=== PATIENT | female | born 1955 | race Caucasian/White ===

== ENCOUNTER 2023-03-14 07:27 | Outpatient (REF) | payer MEDICARE, OTHER, SELFPAY ==
--- NOTE | ~2023-03-14 | XR_ITS ---
EXAMINATION: XR LEFT KNEE XR RIGHT KNEE CLINICAL INFORMATION: Bilateral knee pain. COMPARISON: None TECHNIQUE: AP, lateral and sunrise views of each knee. FINDINGS: RIGHT: Status post right total knee arthroplasty. Hardware components are in satisfactory position. No periprosthetic lucency or periprosthetic fracture. No significant joint effusion. LEFT: Status post left total knee arthroplasty with longstem tibial component. Hardware components are in satisfactory position. There is 1 mm lucency along the anterior aspect of the tibial prosthesis. No significant joint effusion. XR/XR knee LT 3V IMPRESSION: 1 mm lucency along the anterior aspect of the tibial prosthesis. Advise clinical correlation.
--- NOTE | ~2023-03-14 | XR_ITS ---
EXAMINATION: XR LEFT KNEE XR RIGHT KNEE CLINICAL INFORMATION: Bilateral knee pain. COMPARISON: None TECHNIQUE: AP, lateral and sunrise views of each knee. FINDINGS: RIGHT: Status post right total knee arthroplasty. Hardware components are in satisfactory position. No periprosthetic lucency or periprosthetic fracture. No significant joint effusion. LEFT: Status post left total knee arthroplasty with longstem tibial component. Hardware components are in satisfactory position. There is 1 mm lucency along the anterior aspect of the tibial prosthesis. No significant joint effusion. XR/XR knee RT 3V IMPRESSION: 1 mm lucency along the anterior aspect of the tibial prosthesis. Advise clinical correlation.
== END 2023-03-14 07:28 | disposition home or self-care (01) ==
LOC: HO.HOSX 07:27
PROVIDERS: Visit Provider Orthopaedic Surgery
DX: M25.562 Pain in left knee (principal); M25.561 Pain in right knee; Z96.653 Presence of artificial knee joint, bilateral
CPT/HCPCS: 73562; 99212

== ENCOUNTER 2023-03-14 10:02 | Outpatient (AMB) | payer MEDICARE, OTHER, SELFPAY ==
--- NOTE | 2023-03-14 10:07 | MHC.OFFVIS ---
Intake Intake Visit Reasons: New Pt - Bilateral Knees Intake Note: Hilda is a 67 year old female who presents today as a new patient with complaints of intermittent discomfort in both of her knees after undergoing bilateral total knee replacement surgeries. The patient also underwent revision of her left total knee replacement several years ago. She denies any fevers or chills. She continues to walk for exercise. She does not take any medicines for discomfort. Allergies naproxen Allergy (Severe, Verified 03/14/23 10:19) throat closes Physical Exam Const Other: Well-nourished well-developed very friendly female awake alert and oriented x3 in no acute distress Extrem Other: Bilateral lower extremity examination shows good capillary refill, no skin lesions noted, normal sensation light touch Bilateral knee examination shows that the surgical incisions are well healed, no erythema, full active extension and flexion to 120 degrees, her patellae track well, no instability Results Reviewed Results Reviewed: X-rays of the patient's bilateral knees taken today show total knee arthroplasties in good position with no signs of loosening, no acute bony abnormalities Assessment & Plan Assessment & Plan (1) Right knee pain: Code(s): M25.561 - Pain in right knee Plan: Ms. Cordova continues to do very well after undergoing bilateral total knee replacement surgeries as well as revision left total knee replacement surgery. She will continue with her home exercise program. She does know to take antibiotics before any dental work. She will contact me prior to her annual follow-up appointment should any questions or concerns arise. Feel free to call me at any time should questions regarding her orthopedic management arise. I spent 22 minutes in reviewing the patient's records and imaging studies, seeing the patient and documenting in the medical record. (2) Left knee pain: Code(s): M25.562 - Pain in left knee Orders: Orders XR knee LT 3V Today M25.562 - Pain in left knee XR knee RT 3V Today M25.561 - Pain in right knee Coding Level of Care Code Est Pt Level 2 (60509) Diagnoses Right knee pain M25.561 Left knee pain M25.562
== END 2023-03-14 10:51 | disposition home or self-care (01) ==
PROVIDERS: PCP Internal Medicine; Visit Provider Orthopaedic Surgery
DX: M25.561 Pain in right knee (principal); M25.562 Pain in left knee
CPT/HCPCS: 99212

== ENCOUNTER 2023-06-27 09:28 | Outpatient (AMB) | payer MEDICARE, OTHER, SELFPAY ==
--- NOTE | 2023-06-27 09:30 | MHC.OFFVIS ---
Intake Intake Visit Reasons: OV - Bilateral Knee pain Intake Note: Hilda is a 67 year old female who presents today with complaints of intermittent discomfort in both of her knees after undergoing bilateral total knee replacement surgeries. The patient also underwent revision of her left total knee replacement several years ago. She denies any fevers or chills. She continues to walk for exercise. She does not take any medicines for discomfort. She is currently undergoing treatment for melanoma on her right lower leg. Allergies naproxen Allergy (Severe, Verified 06/27/23 09:30) throat closes Medication List - Last Reconciled 06/27/23 by Abdullahi Arshad MD amoxicillin 2,000 mg (4 x 500 mg) PO ONCE 1 day Physical Exam Const Other: Well-nourished well-developed very friendly female awake alert and oriented x3 in no acute distress Extrem Other: Bilateral knee examination shows that the surgical incisions are well healed, no erythema, full active extension and flexion to 120 degrees, her patellae track well Assessment & Plan Assessment & Plan (1) Right knee pain: Code(s): M25.561 - Pain in right knee (2) Left knee pain: Code(s): M25.562 - Pain in left knee Plan: Ms. Cordova continues to do well after undergoing bilateral total knee replacement surgeries. She will continue with her home exercise program. She does know to take antibiotics before any dental work. She will contact me prior to her annual follow-up appointment should any questions or concerns arise. Feel free to call me at any time should questions regarding his orthopedic management arise. I spent 22 minutes in reviewing the patient's records and imaging studies, seeing the patient and documenting in the medical record. Coding Level of Care Code Est Pt Level 2 (18175) Diagnoses Right knee pain M25.561 Left knee pain M25.562
== END 2023-06-27 09:55 | disposition home or self-care (01) ==
PROVIDERS: PCP Internal Medicine; Visit Provider Orthopaedic Surgery
DX: M25.561 Pain in right knee (principal); M25.562 Pain in left knee
CPT/HCPCS: 99212

== ENCOUNTER → 2023-06-27 09:28 | Outpatient (BNVA) | payer MEDICARE, OTHER, SELFPAY | PROVIDERS: PCP Internal Medicine; Visit Provider Orthopaedic Surgery | DX: M25.561 Pain in right knee (principal); M25.562 Pain in left knee; C43.71 Malignant melanoma of right lower limb, including hip; Z96.653 Presence of artificial knee joint, bilateral; Z47.1 Aftercare following joint replacement surgery; Z96.652 Presence of left artificial knee joint | CPT/HCPCS: 99212 ==

== ENCOUNTER 2023-11-27 09:53 | Outpatient (AMB) | payer MEDICARE, OTHER, SELFPAY ==
--- NOTE | 2023-11-27 09:53 | MHC.OFFVIS ---
Intake Vital Signs 11/27/23 09:56 Height 5 ft 10 in Weight 230 lb BMI 33.0 Intake Visit Reasons: OV - Bilateral Knee pain Intake Note: Hilda is a 67 year old female who presents today with complaints of intermittent discomfort in both of her knees after undergoing bilateral total knee replacement surgeries. The patient also underwent revision of her left total knee replacement several years ago. She denies any fevers or chills. She remains quite active with her zoroastrianism activities. She does not take any medicines for discomfort. Allergies naproxen Allergy (Severe, Verified 11/27/23 10:01) throat closes Medication List - Last Reconciled 11/27/23 by Abdullahi Arshad MD amoxicillin 2,000 mg (4 x 500 mg) PO ONCE 1 day PFS Surgical History Hx of shoulder surgery History of right knee joint replacement History of left knee replacement Social History Patient Tobacco Use Status: Never used Tobacco Current occupational status: retired Physical Exam Vital Signs: BMI result Body Mass Index 33.0 Const Other: Well-nourished well-developed very friendly female awake alert and oriented x3 in no acute distress Extrem Other: Bilateral lower extremity examination shows good capillary refill, no skin lesions noted, normal sensation light touch Bilateral knee examination shows that the surgical incisions are well healed, no erythema, full active extension and flexion to 120 degrees, her patellae track well Assessment & Plan Assessment & Plan (1) Right knee pain: Code(s): M25.561 - Pain in right knee (2) Left knee pain: Code(s): M25.562 - Pain in left knee Plan: Ms. Cordova continues to do well after undergoing bilateral total knee replacement surgeries. She will continue with her active lifestyle. She does know to take antibiotics before any dental work. She will contact me prior to her annual follow-up appointment should any questions or concerns arise. Feel free to call me at any time should questions regarding her orthopedic management arise. Plan I spent 22 minutes in reviewing the patient's records and imaging studies, seeing the patient and documenting in the medical record. Coding Level of Care Code Est Pt Level 2 (91775) Diagnoses Right knee pain M25.561 Left knee pain M25.562
[2023-11-27 09:56] VITALS: BMI 33.0
== END 2023-11-27 10:22 | disposition home or self-care (01) ==
PROVIDERS: PCP Internal Medicine; Visit Provider Orthopaedic Surgery
DX: M25.561 Pain in right knee (principal); M25.562 Pain in left knee
CPT/HCPCS: 99213

== ENCOUNTER → 2023-11-27 09:53 | Outpatient (BNVA) | payer MEDICARE, OTHER, SELFPAY | PROVIDERS: PCP Internal Medicine; Visit Provider Orthopaedic Surgery | DX: M25.561 Pain in right knee (principal); M25.562 Pain in left knee | CPT/HCPCS: 99212 ==

== ENCOUNTER 2024-04-24 10:18 | Outpatient (REF) | payer MEDICARE, OTHER, SELFPAY ==
--- NOTE | ~2024-04-24 | XR_ITS ---
EXAMINATION: XR KNEE, BILATERAL CLINICAL INFORMATION: M25.562 - Pain in left knee COMPARISON: 03/14/2023 TECHNIQUE: Three views of each knee. FINDINGS: Stable, standard appearance of the bilateral total knee arthroplasties which are in the usual position and alignment without evidence of loosening or fracture. XR/XR knee RT 3V IMPRESSION: Stable bilateral total knee arthroplasties. Electronically signed by: Toby Vega MD 04/30/2024 12:44 PM EDT
--- NOTE | ~2024-04-24 | XR_ITS ---
EXAMINATION: XR KNEE, BILATERAL CLINICAL INFORMATION: M25.562 - Pain in left knee COMPARISON: 03/14/2023 TECHNIQUE: Three views of each knee. FINDINGS: Stable, standard appearance of the bilateral total knee arthroplasties which are in the usual position and alignment without evidence of loosening or fracture. XR/XR knee LT 3V IMPRESSION: Stable bilateral total knee arthroplasties. Electronically signed by: Toby Vega MD 04/30/2024 12:44 PM EDT
== END 2024-04-24 10:19 | disposition home or self-care (01) ==
LOC: HO.XRAY 10:18
PROVIDERS: PCP Internal Medicine; Visit Provider Orthopaedic Surgery
DX: M25.561 Pain in right knee (principal); M25.562 Pain in left knee
CPT/HCPCS: 73562; 99212

== ENCOUNTER 2024-04-24 11:02 | Outpatient (AMB) | payer MEDICARE, OTHER, SELFPAY ==
--- NOTE | 2024-04-24 11:07 | MHC.OFFVIS ---
Intake Visit Reasons: OV - Bilateral Knee pain Intake Note: Hilda is a 67 year old female who presents today with complaints of intermittent discomfort in both of her knees after undergoing bilateral total knee replacement surgeries. The patient also underwent revision of her left total knee replacement several years ago. She denies any fevers or chills. 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 She does not take any medicines for discomfort. Allergies naproxen Allergy (Severe, Verified 04/24/24 11:07) throat closes Medication List - Last Reconciled 04/24/24 by Abdullahi Arshad MD amoxicillin 2,000 mg (4 x 500 mg) PO ONCE 1 day PFS Surgical History Hx of shoulder surgery History of right knee joint replacement History of left knee replacement Social History Patient Tobacco Use Status: Never used Tobacco Current occupational status: retired Physical Exam Const Other: Well-nourished well-developed very friendly female awake alert and oriented x3 in no acute distress Extrem Other: Bilateral lower extremity examination shows good capillary refill, no skin lesions noted, normal sensation light touch Bilateral knee examination shows that the surgical incisions are well healed, no erythema, full active extension and flexion to 120 degrees, her patellae track well Results Reviewed Results Reviewed: X-rays of the patient's bilateral knees taken today show total knee arthroplasties in good position with no signs of loosening, no acute bony abnormalities Assessment & Plan Assessment & Plan (1) Right knee pain: Code(s): M25.561 - Pain in right knee Category: Medical (2) Left knee pain: Code(s): M25.562 - Pain in left knee Category: Medical Plan Hilda continues to do very well after undergoing bilateral total knee replacement surgeries. She will continue with her home exercise program. She does know to take antibiotics before any dental work. She will contact me prior to her annual follow-up appointment should any questions or concerns arise. Feel free to call me at any time should questions regarding her orthopedic management arise. I spent 22 minutes in reviewing the patient's records and imaging studies, seeing the patient and documenting in the medical record. Orders: Orders XR knee LT 3V Today M25.562 - Pain in left knee XR knee RT 3V Today M25.561 - Pain in right knee Coding Level of Care Code Est Pt Level 3 (13870) Complex EM visit Add On G2211 Diagnoses Right knee pain M25.561 Left knee pain M25.562
== END 2024-04-24 11:44 | disposition home or self-care (01) ==
PROVIDERS: PCP Internal Medicine; Visit Provider Orthopaedic Surgery
DX: M25.561 Pain in right knee (principal); M25.562 Pain in left knee; Z96.653 Presence of artificial knee joint, bilateral
CPT/HCPCS: 99213; G2211

== ENCOUNTER 2024-11-21 12:46 | Outpatient (REF) | payer MEDICARE, OTHER, SELFPAY ==
--- NOTE | ~2024-11-21 | XR_ITS ---
EXAMINATION: XR HAND AND WRIST COMPLETE LEFT, XR FOREARM 2 VIEWS LEFT HISTORY: Z91.81 - History of falling COMPARISON: There are no prior studies available for comparison. FINDINGS: Three views of the left hand and wrist, AP and lateral views of the left forearm are submitted. The bones are osteopenic. A well-corticated osseous density is seen adjacent to the ulnar styloid may be the result of old trauma. There is no acute fracture or dislocation. 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 The soft tissues are unremarkable. XR/XR forearm LT 2V IMPRESSION: No evidence of acute fracture of the left hand, wrist, or forearm. Electronically signed by: Paolo Jain MD 11/21/2024 02:37 PM EDT
--- NOTE | ~2024-11-21 | XR_ITS ---
EXAMINATION: XR HAND AND WRIST COMPLETE LEFT, XR FOREARM 2 VIEWS LEFT HISTORY: Z91.81 - History of falling COMPARISON: There are no prior studies available for comparison. FINDINGS: Three views of the left hand and wrist, AP and lateral views of the left forearm are submitted. The bones are osteopenic. A well-corticated osseous density is seen adjacent to the ulnar styloid may be the result of old trauma. There is no acute fracture or dislocation. 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 The soft tissues are unremarkable. XR/XR hand wrist LT IMPRESSION: No evidence of acute fracture of the left hand, wrist, or forearm. Electronically signed by: Poalo Jain MD 11/21/2024 02:37 PM EDT
--- OUTSIDE RECORDS SUMMARY | 2024-11-21 14:31 | XMS_ITS | Clinical Summary ---
Author Organization [facility] Address [address] [place] [address] Care Team Providers Care C T Tech Name Role Phone Everett Cobb MD Primary Care Provider [phone] Allergies No known active allergies Medications Medication [...] age to complete this topic Care Teams C T Tech Relationship Specialty Start Date End Date Everett Cobb MD [address] [facility] [place] [address] PCP - General Internal Medicine 04/21/20
== END 2024-11-21 12:47 | disposition home or self-care (01) ==
LOC: HO.HMGCX 12:46
PROVIDERS: PCP Internal Medicine; Visit Provider Nurse Practitioner Family
DX: M79.632 Pain in left forearm (principal); M79.89 Other specified soft tissue disorders; Z91.81 History of falling
CPT/HCPCS: 73090; 73110; 73130; 99212

== ENCOUNTER 2024-11-21 12:46 | Outpatient (AMB) | payer MEDICARE, OTHER, SELFPAY ==
--- OUTSIDE RECORDS SUMMARY | 2024-11-21 13:18 | XMS_ITS | Clinical Summary ---
Author Organization [facility] Address [address] [place] [address] Care Team Providers Care Pathological Technician Name Role Phone Everett Cobb MD Primary Care Provider [phone] Allergies No known active allergies Medications Medication Sig Dispensed Refills Start Date End Date Status atorvastatin (LIPITOR) tablet 40 mg 0 01/11/2018 Active celecoxib (CELEBREX) 100 MG capsule Take 100 mg by mouth 2 (two) times a day. 3 01/01/2018 Active hydrochlorothiazide (HYDRODIURIL) tablet 25 mg Take 25 mg by mouth daily. 2 10/26/2017 Active levothyroxine (SYNTHROID, LEVOXYL) tablet 125 mcg TAKE 1 TABLET ONCE DAILY 3 11/09/2017 Active losartan (COZAAR) tablet 25 mg Take 25 mg by mouth daily. 3 11/20/2017 Active pantoprazole (PROTONIX) 40 MG tablet Take 40 mg by mouth daily. 3 12/29/2017 Active sertraline (ZOLOFT) 50 MG tablet 0 01/08/2020 Active vitamin B-12 (CYANOCOBALAMIN) 250 MCG tablet Take 250 mcg by mouth daily. 0 05/26/2020 Active omeprazole (PriLOSEC) 20 MG capsule TAKE 1 CAPSULE EVERY MORNING ONE HOUR BEFORE MEALS 0 07/03/2022 Active potassium chloride ER (K-DUR) 10 MEQ tablet TAKE 1 TABLET BY MOUTH SUNDAY, SUNDAY, AND SUNDAY FOR 30 DAYS 70 0 06/20/2022 Active Active Problems Problem Noted Date Diagnosed Date Lumbar back pain with radicu lopathy affecting left lower extremity 08/12/2020 Shoulder stiffness, right 05/14/2018 Postop check 04/05/2018 Acute pain of right shoulder 01/15/2018 Shoulder weakness 01/15/2018 Family History Medical History Relation Name Comments Cancer Brother Heart disease Brother Hypertension Brother Cancer Father Heart disease Father Hypertension Father Cancer Mother Hypertension Mother Relation Name Status Comments Brother Father Mother Social History Tobacco Use Types Packs/Day Years Used Date Smoking Tobacco: Never Assessed Sex and Gender Information Value Date Recorded Sex Assigned at Not on file Gender Identity Not on file Sexual Orientation Not on file Job Start Date Occupation Industry Not on file Not on file Not on file Plan of Treatment Health Maintenance Due Date Last Done Comments Hepatitis C Screening 1954 COVID-19 Vaccine (#1) 06/17/1955 Depression Screening 1966 Preventative Health Evaluation 1972 DTap / Tdap / Td (1 - Tdap) 1973 Colon Cancer Screening (Colonoscopy) 12/16/1999 Breast Cancer Screening (Mammogram) 2004 Shingrix-Zoster Vaccine (1 of 2) 2004 Fall Risk Assessment 12/16/2019 Osteoporosis Screening (DEXA Scan) 12/16/2019 Pneumococcal Vaccine (1 of 1 - PCV) 12/16/2019 Influenza Vaccine (#1) 2024 RSV Adult > 60+ Yrs or Pregn ant (1 - 1-dose 75+ series) 2029 Hepatitis B Vaccines Aged Out No long er eligible based on patient's age to complete this topic RSV Ped < 20 months Aged Out No longe r eligible based on patient's age to complete this topic Care Teams Pathological Technician Relationship Specialty Start Date End Date Everett Cobb MD [address] [facility] [place] [address] PCP - General Internal Medicine 04/21/20
--- OUTSIDE RECORDS SUMMARY | 2024-11-21 13:18 | XMS_ITS ---
Author Name [facility] Organization Unknown Encounters Encounter Type Encounter Reason Primary Diagnosis Location Date Ambulatory [facility] [place] 03/23/2023
[2024-11-21 13:20] VITALS: BP 126/82; PULSE 99; TEMP 36.6; O2SAT 100; BMI 36.4
--- NOTE | 2024-11-21 13:20 | AM.OFFWIN_ITS ---
Intake Vital Signs 11/21/24 13:20 Height 5 ft 10 in Weight 254 lb BMI 36.4 BP 126/82 Blood Pressure Location Rt brachial Position Sitting Pulse 99 Pulse Source Pulse Oximeter Temp 97.9 F Temp Source Oral Pulse Oximetry (%) 100 Oxygen Delivery Method Room Air Intake Visit Reasons: EP Fall, LT arm/wrist pain Intake Note: Pt presents to the office today for c/o falling this morning and fell and hit her left arm and wrist on a tile floor. Patient Tobacco Use Status: Never used Tobacco Allergies naproxen Allergy (Severe, Verified 11/21/24 13:59) throat closes HPI EP Fall, LT arm/wrist pain HPI Details This is a 68-year-old female patient who presents to the walk-in clinic today with left elbow/forearm/wrist pain, following a fall this morning. She states that she was carrying grocery bags, and slipped on her tile floor, landing on her left arm. She did not hit her head, no LOC. She states that hand and arm have been very tender/painful and swollen since her fall. [facility] Surgical History Hx of shoulder surgery History of right knee joint replacement History of left knee replacement Social History Patient Tobacco Use Status: Never used Tobacco Current occupational status: retired Review of Systems Const All systems reviewed & are unremarkable except as noted in HPI and below Physical Exam Vital Signs: Last Vital Signs Temp 97.9 F 11/21/24 13:20 Pulse 99 11/21/24 13:20 BP 126/82 11/21/24 13:20 Pulse Ox 100 11/21/24 13:20 Oxygen Delivery Method Room Air 11/21/24 13:20 BMI result Body Mass Index 36.4 Const General: cooperative and acute distress (moderately uncomfortable due to pain) Resp Effort & Inspection: normal respiratory effort Auscultation: clear to auscultation bilaterally Cardio Rate: regular rate Rhythm: regular rhythm Skin General skin exam: no rashes or lesions noted Neuro General: gait normal Extrem Other: swelling and tenderness over dorsal left hand/wrist and forearm. Tenderness over distal humerus. No abrasions or open areas. Painful ROM in all of these joints, particularly pro/supination of forearm. General: Yes capillary refill normal Psych Appearance: grossly normal Mental Status: mental status grossly normal Speech and movement: Normal speech and movement present Assessment & Plan Assessment & Plan (1) Pain and swelling of left forearm: Code(s): M79.632 - Pain in left forearm; M79.89 - Other specified soft tissue disorders Plan: X-rays obtained in the office did not reveal any evidence of acute fracture of the left hand, wrist, or forearm. I discussed this with the patient in the office. Her left arm is significantly painful, and ROM is difficult for her. I provided her with a sling for some immobilization, as any movement is particularly painful for her. We discussed only utilizing this for several days, until she starts to feel improvement in symptoms. I encouraged her to ice any tender/swollen areas, and elevate on a pillow later this evening as tolerated. She takes Celebrex daily, which she can continue utilizing. I have prescribed her a short course of muscle relaxers, and pain medication to take on an as-needed basis, when NSAIDs and more conservative treatments are ineffective. We discussed at length the indications, use, and possible side effects/risks associated with these medications. She does have a follow up with her PCP in a couple of weeks. We discussed that if she does not improve with time and conservative measures, or if symptoms worsen, she will return to the clinic next week for further evaluation. All questions were answered and patient verbalizes understanding and agrees to plan. (2) Status post fall: Code(s): Z91.81 - History of falling Plan: As above Orders: Orders XR forearm LT 2V Today Z91.81 - History of falling Medications: New tramadol Take one tablet up to twice a day as needed for pain. 50 mg PO BID 3 days PRN 6 tabs 0RF pain, severe M79.632 - Pain in left forearm, M79.89 - Other specified soft tissue disorders, Z91.81 - History of falling tizanidine Take one tablet at bedtime as needed for muscle pain/spasms. 2 mg PO BEDTIME 5 days PRN 5 tabs 0RF muscle spasticity M79.632 - Pain in left forearm, M79.89 - Other specified soft tissue disorders, Z91.81 - History of falling Coding Level of Care Code Est Pt Level 4 (27748) Diagnoses Pain and swelling of left forearm M79.632; M79.89 Status post fall Z91.81
== END 2024-11-21 15:00 | disposition home or self-care (01) ==
PROVIDERS: PCP Internal Medicine; Visit Provider Nurse Practitioner Family
DX: M79.632 Pain in left forearm (principal); M79.89 Other specified soft tissue disorders; Z91.81 History of falling

== ENCOUNTER → 2024-11-21 14:15 | Outpatient (BNV) | payer MEDICARE, OTHER, SELFPAY | PROVIDERS: PCP Internal Medicine; Visit Provider Radiology Diagnostic Radiology | DX: M79.632 Pain in left forearm (principal) | CPT/HCPCS: 73090; 73130 ==

== ENCOUNTER 2024-12-25 07:03 | Outpatient (REF) | payer MEDICARE, OTHER, SELFPAY ==
--- NOTE | ~2024-12-25 | CT_ITS ---
CLINICAL HISTORY: PAIN CT of the left wrist without contrast Comparison: None Findings: Visualized soft tissues are unremarkable. No acute fracture. Small well corticated ossific focus adjacent to the ulnar styloid, possibly indicating an ununited chronic fracture.Joint space narrowing and periarticular osteophyte formation at the radiocarpal, scaphotrapezial, and 1st carpometacarpal joints is present, indicating osteoarthritis. IMPRESSION: No acute findings. This document has been electronically signed by: Sissy Becker MD on 12/25/2024 17:05:52
--- NOTE | ~2024-12-25 | CT_ITS ---
CLINICAL HISTORY: PAIN CT of the left humerus without contrast Comparison: None Findings: Visualized soft tissues are unremarkable. No acute fracture. IMPRESSION: No acute findings. This document has been electronically signed by: Sissy Becker MD on 12/25/2024 17:05:39
--- OUTSIDE RECORDS SUMMARY | 2024-12-25 07:06 | XMS_ITS | Clinical Summary ---
Author Organization [facility] Address [address] [place] [address] Care Team Providers Care Standpipe Tender Name Role Phone Everett Cobb MD Primary Care Provider [phone] Allergies No known active allergies Medications Medication [...] age to complete this topic Care Teams Standpipe Tender Relationship Specialty Start Date End Date Everett Cobb MD [address] [facility] [place] [address] PCP - General Internal Medicine 04/21/20
== END 2024-12-25 07:04 | disposition home or self-care (01) ==
LOC: HO.CT 07:03
PROVIDERS: PCP Internal Medicine; Visit Provider Nurse Practitioner
DX: M79.602 Pain in left arm (principal)
CPT/HCPCS: 73200

== ENCOUNTER → 2024-12-25 07:07 | Outpatient (BNV) | payer MEDICARE, OTHER, SELFPAY | PROVIDERS: PCP Internal Medicine; Visit Provider Radiology Diagnostic Radiology | DX: M79.602 Pain in left arm (principal); M25.532 Pain in left wrist | CPT/HCPCS: 73200 ==

== ENCOUNTER 2025-01-13 12:59 | Outpatient (REF) | payer MEDICARE, OTHER, SELFPAY ==
--- NOTE | ~2025-01-13 | XR_ITS ---
EXAMINATION: XR FOREARM 2 VIEWS LEFT HISTORY: S52.90XA - Unspecified fracture of unspecified forearm, initial encounter... COMPARISON: Comparison is made with the prior examination dated 11/21/2024. FINDINGS: AP and lateral views of the left forearm are submitted. Osseous mineralization is normal. There is a nondisplaced transverse fracture of the radial neck. No additional fracture is seen. The visualized wrist and elbow joint spaces are preserved. The soft tissues are unremarkable. XR/XR forearm LT 2V IMPRESSION: Nondisplaced fracture of the radial neck. Electronically signed by: Paolo Jain MD 01/13/2025 02:41 PM EDT
== END 2025-01-13 13:00 | disposition home or self-care (01) ==
LOC: HO.HOSX 12:59
DX: M25.532 Pain in left wrist (principal); M79.632 Pain in left forearm; S52.132A Displaced fracture of neck of left radius, initial encounter for closed fracture; W01.0XXA Fall on same level from slipping, tripping and stumbling without subsequent striking against object, initial encounter; Y93.01 Activity, walking, marching and hiking; Y92.9 Unspecified place or not applicable; Y99.9 Unspecified external cause status; M85.80 Other specified disorders of bone density and structure, unspecified site
CPT/HCPCS: 73090; 99212

== ENCOUNTER 2025-01-13 13:16 | Outpatient (AMB) | payer MEDICARE, OTHER, SELFPAY ==
--- NOTE | 2025-01-13 13:39 | A.OFFVIS_ITS ---
Vital Signs 01/13/25 13:41 Height 5 ft 10 in Weight 280 lb BMI 40.2 Handedness Right Intake Visit Reasons: New prob-LT wrist/forearm pain Intake Note: Hilda is a 69 year old right hand dominant female who presents today for a new problem visit for her left wrist and forearm pain s/p fall DOI: 11/21/24. Patient reports she slipped and fell on tile floor landing on her left arm and left wrist. She expresses she has arthritis in the body so there are things her left wrist does not do that she wants. She states she has adabted to using her right hand more than her left. Reports difficulty with pronation, supination, ulnar and radial deviation. Patient has hx of Osteopenia. Has CT scan of left wrist and elbow on 12/25/24. Has an allergy to a certain blood pressure medication however she does not recall the name. Allergies naproxen Allergy (Severe, Verified 01/13/25 13:42) throat closes HPI HPI New prob-LT wrist/forearm pain: Details: Hilda is a 69 year old right hand dominant female who presents today for a new problem visit for her left wrist and forearm pain s/p fall DOI: 11/21/24. Patient reports she slipped and fell on tile floor landing on her left arm and left wrist. She expresses she has arthritis in the body so there are things her left wrist does not do that she wants. She states she has adabted to using her right hand more than her left. Reports difficulty with pronation, supination, ul oscar and radial deviation. Patient has hx of Osteopenia. Has CT scan of left wrist and elbow on 12/25/24. Has an allergy to a certain blood pressure medication however she does not recall the name. [facility] Surgical History Hx of shoulder surgery History of right knee joint replacement History of left knee replacement Social History Patient Tobacco Use Status: Never used Tobacco Current occupational status: retired Physical Exam Vital Signs: BMI result Body Mass Index 40.2 Office Procedures AMB Fracture Care Details: Right radial head fracture Fracture Billing Code: Fracture Billing Code Assessment & Plan Assessment & Plan (1) Fracture of radial neck, left, closed: Code(s): S52.132A - Displaced fracture of neck of left radius, initial encounter for closed fracture Category: Medical Plan History of Present Illness The patient is a 69-year-old female presenting with post-fall management concerns, primarily regarding her right arm following an incident on November 21. The initial evaluation involved an X-ray at a walk-in clinic but was inconclusive due to osteopenia. Subsequent CAT scan imaging Revealed no acute bony abnormality of the right wrist. the patient reports that her pain was primarily in the right elbow. The patient experienced limited motion and strength in the right arm post-fall, with difficulty performing activities involving pronation and supination. Despite initial treatment with a sling, she has self-managed to prevent joint immobility. X-rays taken recently confirmed the fracture diagnosis and healing progression, though she reports enduring some functional limitations. Review of Systems - Musculoskeletal: Reports difficulty with right arm motion, specifically pronation and supination, and limited wrist function. - General: Denies current pain at fracture site. Systems reviewed and are negative except as per HPI and below Physical Exam - Musculoskeletal- Observation of limited range of motion in the right elbow with difficulty in full pronation and supination. Flexion and extension full and intact. There is no tenderness to palpation of the right radial head Results - Tests: x-rays taken in the office today and reviewed by me demonstrate nondisplaced radial head fracture with evidence of good interval bony healing - Previous X-rays: Initially inconclusive due to osteopenia, age indeterminate ulnar styloid f fracture. Procedure Plan Occupational therapy is advised to enhance the range of motion and strength recovery in the right arm post-fracture. The patient should adhere to a 5-pound weight limit during exercises and daily activities to ensure proper healing. Surgery is not recommended due to the risk factors and relatively stable nature of the minimal displacement. I will see the patient in four to five weeks for a follow-up evaluation. The patient should monitor for and report any signs of increased pain or swelling. Patient was informed and verbally consented to the use of an ambient scribe for clinic note documentation during this visit. Discussion Notes I discussed with the patient that the minimally displaced radial head fracture was identified on recent imaging, which was not visible immediately post-injury due to osteopenia. Surgical intervention is typically not necessary for this type of fracture, and occupational therapy is recommended to improve range of motion and strength. I emphasized the importance of limiting activity to a 5- pound weight to prevent complications. The patient was advised on signs of potential fracture complications, such as pain and swelling, and to contact me if they occur. I arranged a follow-up appointment in four to five weeks to assess healing and progress. Patient Instructions - Begin occupational therapy focusing on arm and wrist exercises. - Do not exceed a 5-pound weight limit with the affected arm. - Report any new pain, swelling, or changes in condition immediately. - Remove and cease use of the sling. - Schedule and attend follow-up appointment in four to five weeks. Orders: Orders XR forearm LT 2V 01/13/25 S52.209A - Unspecified fracture of shaft of unspecified ulna, initial encounter for closed fracture, S52.90XA - Unspecified fracture of unspecified forearm, initial encounter for closed fracture OT Evaluation and Treatment 01/13/25 S52.132A - Displaced fracture of neck of left radius, initial encounter for closed fracture Coding Level of Care Code Est Pt Level 3 (52486) Diagnoses Fracture of radial neck, left, closed S52.132A CPT Codes Fracture Care - Fracture Billing Code: Fracture Billing Code ([id number])
[2025-01-13 13:41] VITALS: BMI 40.2
== END 2025-01-13 14:08 | disposition home or self-care (01) ==
LOC: HO.HOS 13:17
PROVIDERS: PCP Internal Medicine
DX: S52.132A Displaced fracture of neck of left radius, initial encounter for closed fracture (principal)
CPT/HCPCS: 99213

== ENCOUNTER → 2025-01-13 13:18 | Outpatient (BNV) | payer MEDICARE, OTHER, SELFPAY | PROVIDERS: Visit Provider Radiology Diagnostic Radiology | DX: S52.135A Nondisplaced fracture of neck of left radius, initial encounter for closed fracture (principal) | CPT/HCPCS: 73090 ==

== ENCOUNTER 2025-02-17 10:01 | Outpatient (REF) | payer MEDICARE, OTHER, SELFPAY ==
--- NOTE | ~2025-02-17 | XR_ITS ---
CLINICAL HISTORY: M25.522 - Pain in left elbow 3 views left elbow Comparison: None Findings: No dislocations. There is a small joint effusion lifting the anterior distal humeral fat pad No significant arthritic change. There is a transverse nondisplaced impacted fracture of the neck of the proximal radius No radiopaque foreign body. Impression: Transverse impacted nondisplaced fracture involving the neck of the proximal radius This document has been electronically signed by: Mundo Elizabeth MD on 02/18/2025 13:30:42
== END 2025-02-17 10:02 | disposition home or self-care (01) ==
LOC: HO.HOSX 10:01
PROVIDERS: PCP Internal Medicine
DX: M25.522 Pain in left elbow (principal); M25.532 Pain in left wrist; M79.632 Pain in left forearm; S52.132D Displaced fracture of neck of left radius, subsequent encounter for closed fracture with routine healing; W19.XXXD Unspecified fall, subsequent encounter
CPT/HCPCS: 73080; 99212

== ENCOUNTER 2025-02-17 10:01 | Outpatient (AMB) | payer MEDICARE, OTHER, SELFPAY ==
--- NOTE | 2025-02-17 10:14 | A.OFFVIS_ITS ---
Intake Visit Reasons: OV-LT wrist/forearm pain-w/xrays Intake Note: Hilda is a 69 oliver old right hand dominant female who presents today for a follow up visit for her fracture of radial neck, left, closed s/p fall DOI: 11/21/24. At her last visit patient was referred to occupational therapy to work on left arm and left wrist. She was also advised to refrain from lifting over 5 pounds. Patient reports that occupational therapy is going well, no numbness or tingling to report at this time. She reports that she has been refraining from picking up anything over 5lbs. Allergies naproxen Allergy (Severe, Verified 02/17/25 10:17) throat closes HPI HPI OV-LT wrist/forearm pain-w/xrays: Details: Hilda is a 69 oliver old right hand dominant female who presents today for a follow up visit for her fracture of radial neck, left, closed s/p fall DOI: 11/21/24. At her last visit patient was referred to occupational therapy to work on left arm and left wrist. She was also advised to refrain from lifting over 5 pounds. Patient reports that occupational therapy is going well, no numbness or tingling to report at this time. She reports that she has been refraining from picking up anything over 5lbs. Patient reports that her pain has improved significantly, however she does still experience some discomfort with certain motions. [facility] Surgical History Hx of shoulder surgery History of right knee joint replacement History of left knee replacement Social History Patient Tobacco Use Status: Never used Tobacco Current occupational status: retired Review of Systems Const All systems reviewed & are unremarkable except as noted in HPI and below Physical Exam Const General: cooperative and acute distress (moderately uncomfortable due to pain) Resp Effort & Inspection: normal respiratory effort Auscultation: clear to auscultation bilaterally Cardio Rate: regular rate Rhythm: regular rhythm Skin General skin exam: no rashes or lesions noted Neuro General: gait normal Extrem Other: Patient's left elbow normal to inspection No erythema, ecchymosis, edema noted No lacerations, abrasions, open areas No evidence of infection Patient reports very minimal tenderness to palpation of the left radial head Some discomfort with range of motion of the left elbow Patient is able to extend the left elbow fully and flex to approximately 140 degrees without difficulty Patient is able to pronate and supinate the left elbow, 90 degrees pronation, approximately 60 degrees supination Distal sensation intact Capillary refill brisk General: Yes capillary refill normal Psych Appearance: grossly normal Mental Status: mental status grossly normal Speech and movement: Normal speech and movement present Results Reviewed Results Reviewed: X-rays obtained in the office today and independently reviewed by me, Mark Valladares PA-C, demonstrate nondisplaced fracture of the left radial neck with evidence of interval bony healing. Assessment & Plan Assessment & Plan (1) Fracture of radial neck, left, closed: Code(s): S52.132A - Displaced fracture of neck of left radius, initial encounter for closed fracture Category: Medical Plan 1. Left radial neck fracture Date of injury 11/21/2024 Patient appears to be recovering well from her injury Patient is educated about the typical recovery course Educated she can increase to a 3-4 lb weight limit over the next 4 weeks Continue working with occupational therapy Continue working on range of motion Patient is amenable to this plan Follow-up in 4 weeks for [id number] check, sooner with any acute concerns, no x-rays necessary unless patient experiences change in symptoms Orders: Orders XR elbow LT min 3V 02/17/25 M25.522 - Pain in left elbow Coding Level of Care Code Global (74478) Diagnoses Fracture of radial neck, left, closed S52.132A
--- OUTSIDE RECORDS SUMMARY | 2025-02-17 10:46 | XMS_ITS | Clinical Summary ---
Author Organization [facility] Address [address] [place] [address] Care Team Providers Care Prevocational/Rehabilitation Counselor Name Role Phone Everett Cobb MD Primary Care Provider [phone] Allergies No known active allergies Medications Medication [...] 1 - PCV) 12/16/2019 Influenza Vaccine (#1) 2025 RSV Adult > 60+ Yrs or Pregn ant (1 - 1-dose 75+ series) 2029 Hepatitis B Vaccines Aged Out No long er eligible based on patient's age to complete this topic RSV Ped < 20 months Aged Out No longe r eligible based on patient's age to complete this topic Care Teams Prevocational/Rehabilitation Counselor Relationship Specialty Start Date End Date Everett Cobb MD [address] [facility] [place] [address] PCP - General Internal Medicine 04/21/20
--- OUTSIDE RECORDS SUMMARY | 2025-02-17 10:46 | XMS_ITS ---
Author Name [facility] Organization Unknown Encounters Encounter Type Encounter Reason Primary Diagnosis Location Date Ambulatory [facility] [place] 03/23/2023
== END 2025-02-17 10:25 | disposition home or self-care (01) ==
LOC: HO.HOS 10:02
PROVIDERS: PCP Internal Medicine
DX: S52.132A Displaced fracture of neck of left radius, initial encounter for closed fracture (principal)
CPT/HCPCS: 99213

== ENCOUNTER → 2025-02-17 10:07 | Outpatient (BNV) | payer MEDICARE, OTHER, SELFPAY | PROVIDERS: PCP Internal Medicine; Visit Provider Radiology Diagnostic Radiology | DX: S42.325A Nondisplaced transverse fracture of shaft of humerus, left arm, initial encounter for closed fracture (principal) | CPT/HCPCS: 73080 ==

== ENCOUNTER 2025-02-20 13:03 | Outpatient (RCR) | payer MEDICARE, OTHER, SELFPAY ==
--- NOTE | 2025-01-23 08:56 | MHC.OT.EP ---
[address] [phone] Occupational Therapy Plan of Care Patient Name: Hilda Cordova Date of Evaluation: 01/22/25 Diagnosis: Displaced fx of neck of L radius Pain Location: l ELBOW/ WRIST Pain Score: 1 Pain Scale Used: Numeric (0 - 10) Aggravating Factors: non reported Alleviating Factors: Ibuprofen Assessment: Pt is a 69 yr old R hand dominant female who fell in her kitchen on 11/21. She reports she went to urgent care, then ortho before being diagnosed w/ a L radial neck fracture. She reports she has been modifying activity and adhering to the 5 lb weight restriction from the MD. Pt presents today w/ GOOD ROM, but has mild swelling, decreased strength, and functional use of her L UE. She would benefit from skilled OT therapy to address these deficits and RPLOF. Frequency and Duration: The patient will be seen 1x a week for 6 weeks Short Term Goals: Pt will have a MMT of 4+/5 w/ elbow extension Pt will be complaint w/ her HEP Pt will report 0/10 pain w/ activity Longterm Goals: Pt will RPLOF Pt will report using her L hand/UE to carry groceries w/ out difficulty Pt will have 5/5 MMT Treatment Plan: Therapeutic Exercise Therapeutic Activity Home Exercise Program Splinting Neuro Re-ed Patient Education Desensitization/Sensory Re-ed Edema Control ADL Training Ultrasound NMES Iontophoresis Paraffin Fluidotherapy MHP Cold Packs Joint Mobilization Soft Tissue Mobilization Kinesiotaping Electronically Signed By: Kavon Hunter OTR/L Please Sign and return to therapist. Thank you once again for your referral.
--- NOTE | 2025-02-20 15:00 | MHC.OT.DC ---
[address] [phone] F: [phone] Occupational Therapy Discharge Note Patient Name: Hilda Cordova Provider: Mark Valladares Diagnosis: Displaced fx of neck of L radius Date of Evaluation: 01/22/25 Date of Discharge: 02/20/25 Treatments to Date: 5 Discharge Status: Achieved Goals Improved Function Independent with HEP Discharge Summary: MS CORDOVA IS 12 WEEKS S/P RADIAL HEAD FRACTURE. Pt HAS MET GOALS, ABLE TO FUNCTIONALLY USE LUE FOR IADLs WITH LOW TO NO PAIN. PLANS TO CONTINUE STRENGTHENING PART OF HEP. WILL TRANSITION TO A HOME BASED PROGRAM AT THIS TIME. D/C OT. Electronically Signed By: FELICITA FERNÁNDEZ OTR/L Reviewed/agree with student documentation: N/A Therapist: Please Sign and return to therapist, thank you for your referral.
== END 2025-06-15 13:38 | disposition home or self-care (01) ==
LOC: HO.OT 13:03
PROVIDERS: PCP Internal Medicine
DX: S52.312A Greenstick fracture of shaft of radius, left arm, initial encounter for closed fracture (principal)
CPT/HCPCS: 97035; 97110; 97140; 97165; 97535

== ENCOUNTER 2025-04-23 08:19 | Outpatient (REF) | payer MEDICARE, OTHER, SELFPAY ==
--- NOTE | ~2025-04-23 | XR_ITS ---
Exam: X-ray, bilateral knees.XR KNEE 3 VIEWS BILATERAL TECHNIQUE: Three views lower extremity joint, bilateral knees INDICATION: Bilateral knee pain COMPARISON: April 24, 2024 FINDINGS: RIGHT KNEE: Again noted are changes related to total knee arthroplasty. Fluid is visible in the suprapatellar pouch. There is a stable ossified fragment cephalad to the proximal fibula. There is no abnormal lucency at the bone metal interfaces. LEFT KNEE: 3 compartment arthroplasty has been performed. There is no joint effusion. There is lucency at the interface of the tibial plate and medial metaphysis that appears increased. There is stable heterotopic ossification cephalad to the proximal fibula. XR/XR Knee Ciaran 3V IMPRESSION: Right knee: Total knee arthroplasty with small joint effusion. Left knee: Total knee arthroplasty. There is increasing lucency at the interface of the tibial plate and medial metaphysis of uncertain significance. Electronically signed by: Abilio Russell MD 04/23/2025 11:31 AM EDT
--- OUTSIDE RECORDS SUMMARY | 2025-04-24 08:39 | XMS_ITS | Clinical Summary ---
Author Organization [facility] Address [address] [place] [address] Care Team Providers Care Tourism Radio Presenter Name Role Phone Everett Cobb MD Primary Care Provider [phone] Allergies No known active allergies Medications Medication [...] age to complete this topic Care Teams Tourism Radio Presenter Relationship Specialty Start Date End Date Everett Cobb MD [address] [facility] [place] [address] PCP - General Internal Medicine 04/21/20
== END 2025-04-23 08:20 | disposition home or self-care (01) ==
LOC: HO.HOSX 08:19
PROVIDERS: Visit Provider Orthopaedic Surgery
DX: M25.561 Pain in right knee (principal); M25.562 Pain in left knee; Z79.891 Long term (current) use of opiate analgesic
CPT/HCPCS: 73562; 99212

== ENCOUNTER 2025-04-23 09:11 | Outpatient (AMB) | payer MEDICARE, OTHER, SELFPAY ==
--- NOTE | 2025-04-23 09:17 | MHC.OFFVIS ---
Vital Signs 04/23/25 09:48 Height 5 ft 10 in Weight 240 lb BMI 34.4 Intake Visit Reasons: OV- Bilateral Knee pain-year follow up Intake Note: Hilda is a 69 year old woman who presents with complaints of intermittent discomfort in both of her knees after undergoing bilateral total knee replacement surgeries. She continues with her exercise program. She recently underwent surgery for breast cancer. Allergies naproxen Allergy (Severe, Verified 04/23/25 09:48) throat closes Medication List - Last Reconciled 04/23/25 by Abdullahi Arshad MD amoxicillin 2,000 mg (4 x 500 mg) PO ONCE atorvastatin 20 mg PO DAILY celecoxib 100 mg PO BID hydrochlorothiazide 25 mg PO DAILY levothyroxine 125 mcg PO DAILY omeprazole 20 mg PO DAILY potassium chloride ER mEq PO sertraline 50 mg PO DAILY tizanidine 2 mg PO BEDTIME PRN 5 days tramadol 50 mg PO BID PRN 3 days PFS Surgical History Hx of shoulder surgery History of right knee joint replacement History of left knee replacement Social History (Updated 04/23/25 @ 09:48 by HUA Perea) Alcohol intake: current Alcohol intake frequency: holidays/special occasions only Patient Tobacco Use Status: Never used Tobacco Current occupational status: retired Physical Exam Vital Signs: BMI result Body Mass Index 34.4 Extrem Other: Bilateral knee examination shows that the surgical incisions are well healed, no erythema, minimal discomfort with range of motion Results Reviewed Results Reviewed: X-rays of the patient's bilateral knees taken today show total knee arthroplasties in good position with no signs of loosening, no acute bony abnormalities Assessment & Plan Assessment & Plan (1) Left knee pain: Code(s): M25.562 - Pain in left knee Category: Medical (2) Right knee pain: Code(s): M25.561 - Pain in right knee Category: Medical Plan Hilda continues to do well after undergoing bilateral total knee replacement surgeries. She will continue with her exercise program. She will contact me prior to her follow-up appointment in 3 months should any questions or concerns arise. I spent 22 minutes in reviewing the patient's records and imaging studies, seeing the patient and documenting in the medical record. Orders: Orders XR Knee Ciaran 3V Today M25.561 - Pain in right knee, M25.562 - Pain in left knee Coding Level of Care Code Est Pt Level 3 (83134) Complex EM visit Add On G2211 Diagnoses Left knee pain M25.562 Right knee pain M25.561
[2025-04-23 09:48] VITALS: BMI 34.4
--- OUTSIDE RECORDS SUMMARY | 2025-04-23 10:36 | XMS_ITS | Clinical Summary ---
Author Organization [facility] Address [address] [place] [address] Care Team Providers Care Hat Conditioner Name Role Phone Everett Cobb MD Primary Care Provider [phone] Allergies No known active allergies Medications Medication [...] age to complete this topic Care Teams Hat Conditioner Relationship Specialty Start Date End Date Evertet Cobb MD [address] [facility] [address] PCP - General Internal Medicine 04/21/20
== END 2025-04-23 10:22 | disposition home or self-care (01) ==
LOC: HO.HOS 09:12
PROVIDERS: PCP Internal Medicine; Visit Provider Orthopaedic Surgery
DX: M25.562 Pain in left knee (principal); M25.561 Pain in right knee
CPT/HCPCS: 99213; G2211

== ENCOUNTER → 2025-04-23 09:35 | Outpatient (BNV) | payer MEDICARE, OTHER, SELFPAY | PROVIDERS: Visit Provider Radiology Diagnostic Radiology | DX: M25.461 Effusion, right knee (principal); M25.562 Pain in left knee; Z96.653 Presence of artificial knee joint, bilateral | CPT/HCPCS: 73562 ==

== ENCOUNTER 2025-07-23 10:27 | Outpatient (AMB) | payer MEDICARE, OTHER, SELFPAY ==
[2025-07-23 10:29] VITALS: BMI 34.4
--- NOTE | 2025-07-23 10:29 | MHC.OFFVIS ---
Vital Signs 07/23/25 10:29 Height 5 ft 10 in Weight 240 lb BMI 34.4 Intake Visit Reasons: OV- Bilateral Knee pain Intake Note: Hilda is a 69 year old woman who presents with complaints of intermittent discomfort in both of her knees after undergoing bilateral total knee replacement surgeries. She denies any fevers or chills. She denies any locking or giving way. She recently completed radiation therapy for breast cancer. She denies any locking or giving way. Allergies naproxen Allergy (Severe, Verified 07/23/25 10:30) throat closes Medication List - Last Reconciled 07/23/25 by Abdullahi Arshad MD amoxicillin 2,000 mg (4 x 500 mg) PO ONCE anastrozole 1 mg PO DAILY atorvastatin 20 mg PO DAILY celecoxib 100 mg PO BID hydrochlorothiazide 25 mg PO DAILY levothyroxine 125 mcg PO DAILY omeprazole 20 mg PO DAILY potassium chloride ER mEq PO sertraline 50 mg PO DAILY PFSH Surgical History Hx of shoulder surgery History of right knee joint replacement History of left knee replacement Social History Alcohol intake: current Alcohol intake frequency: holidays/special occasions only Patient Tobacco Use Status: Never used Tobacco Current occupational status: retired Physical Exam Vital Signs: BMI result Body Mass Index 34.4 Extrem Other: Bilateral knee examination shows that the surgical incisions are well healed, no erythema, full active extension and flexion to 120 degrees, her patellae track well Assessment & Plan Assessment & Plan (1) Left knee pain: Code(s): M25.562 - Pain in left knee Category: Medical (2) Right knee pain: Code(s): M25.561 - Pain in right knee Category: Medical Plan Hilda continues to do well after undergoing bilateral total knee replacement surgeries. She will continue with her home exercise program. She does know to take antibiotics before any dental work. She will contact me prior to her annual follow-up appointment should any questions or concerns arise. I spent 20 minutes in reviewing the patient's records and imaging studies, seeing the patient and documenting in the medical record. Coding Level of Care Code Est Pt Level 3 (17915) Add On Problem Visit Only Diagnoses Left knee pain M25.562 Right knee pain M25.561
== END 2025-07-23 10:56 | disposition home or self-care (01) ==
LOC: HO.HOS 10:28
PROVIDERS: PCP Internal Medicine; Visit Provider Orthopaedic Surgery
DX: M25.562 Pain in left knee (principal); M25.561 Pain in right knee
CPT/HCPCS: 99213; G2211

== ENCOUNTER → 2025-07-23 10:27 | Outpatient (BNVA) | payer OTHER, SELFPAY | PROVIDERS: PCP Internal Medicine; Visit Provider Orthopaedic Surgery | DX: M25.561 Pain in right knee (principal); M25.562 Pain in left knee; Z96.653 Presence of artificial knee joint, bilateral | CPT/HCPCS: 99212 ==